=== PATIENT | female | born 1960 | race Caucasian/White ===

== ENCOUNTER 2019-03-09 16:03 | Outpatient (CLI) ==
--- NOTE | 2019-03-09 16:24 | DI ---
EXAM: Two views of the left hip. History: Left hip pain. Findings: No acute fracture or dislocation. Mild to moderate narrowing of the left hip joint with m arginal sclerosis and small osteophytes. Postsurgical changes of the lumbosacral spine. Moderate to large amount of stool seen within the rectosigmoid colon. Impression: 1. No acute osseous abnormality. 2. 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 3. [id number] amount of stool seen within the rectosigmoid colon.
== END 2019-03-09 16:04 | disposition home or self-care (01) ==
LOC: RAD 16:03
PROVIDERS: ATTEND Physician Assistant
DX: M25.552 Pain in left hip (principal)